=== PATIENT | female | born 1955 | race Caucasian/White ===

== ENCOUNTER 2019-04-30 11:14 | Emergency (ER) | payer OTHER ==
[~2019-04-30] VITALS: Ht 165.1 cm; Wt 86.2 kg
[2019-04-30] MEDS ORDERED: Cymbalta20 MG PO (11:32)
[2019-04-30] MEDS ORDERED: BLOOD PRESSURE (11:32)
[2019-04-30] MEDS ORDERED: TRAZ50 (11:33)
[2019-04-30] MEDS ORDERED: AMOCLA875 PO (16:06)
[2019-04-30] MEDS ORDERED: IBUP800 PO (16:14)
== END 2019-04-30 17:05 | disposition home or self-care (01) ==
LOC: ER 11:14
DX: S61.412A Laceration without foreign body of left hand, initial encounter (principal); Z79.899 Other long term (current) drug therapy; W31.89XA Contact with other specified machinery, initial encounter; Y93.H2 Activity, gardening and landscaping
CPT/HCPCS: 12004; 73130; 96372-59; 99283-25; A9270; J1885

== ENCOUNTER → 2019-09-29 | Outpatient (CLI) | payer BC ==
[~2019-09-29] MED LIST: AMOCLA875 PO; BLOOD PRESSURE; Cymbalta20 MG PO; IBUP800 PO; TRAZ50
== END | disposition home or self-care (01) ==
LOC: LAB EV 19:00
DX: R10.12 Left upper quadrant pain (principal); R10.13 Epigastric pain
CPT/HCPCS: 87338

== ENCOUNTER 2021-01-26 07:02 | Emergency (ER) | payer MEDICARE, BC ==
[~2021-01-26] VITALS: Ht 165.1 cm; Wt 89.8 kg
[~2021-01-26 07:02] MED LIST changes: -TRAZ50; +TRAZ50 PO
[2021-02-22] MEDS ORDERED: Ultram50 MG PO (09:55)
[2021-02-22] MEDS ORDERED: ACET500 PO (09:56)
[2021-02-22] MEDS ORDERED: OMEP20ER PO (09:56)
[2021-03-15] MEDS ORDERED: ASPI81CH PO (08:58)
[2021-03-15] MEDS ORDERED: Norco 7.5-3251 EACH PO (08:58)
== END 2021-01-26 08:40 | disposition home or self-care (01) ==
LOC: ER 07:02
DX: S22.42XA Multiple fractures of ribs, left side, initial encounter for closed fracture (principal); S93.401A Sprain of unspecified ligament of right ankle, initial encounter; Z79.899 Other long term (current) drug therapy; W01.10XA Fall on same level from slipping, tripping and stumbling with subsequent striking against unspecified object, initial encounter
CPT/HCPCS: 71046; 73610; 99283-25

== ENCOUNTER 2021-03-14 06:47 | Day surgery (SDC) | payer MEDICARE, BC | END 2021-03-15 14:45 | disposition home or self-care (01) | LOC: ORSCMMR 06:47 → SURS 13:20 | PROC: 8E0Y0CZ Robotic Assisted Procedure of Lower Extremity, Open Approach (ICD-10-PCS; principal; 2021-03-14) | PROC: 0SRD0JA Replacement of Left Knee Joint with Synthetic Substitute, Uncemented, Open Approach (ICD-10-PCS; principal; 2021-03-14) | DX: M17.12 Unilateral primary osteoarthritis, left knee (principal); E11.9 Type 2 diabetes mellitus without complications; G47.33 Obstructive sleep apnea (adult) (pediatric); Z87.891 Personal history of nicotine dependence; Z79.899 Other long term (current) drug therapy; M79.7 Fibromyalgia; E66.01 Morbid (severe) obesity due to excess calories; Z68.37 Body mass index [BMI] 37.0-37.9, adult | CPT/HCPCS: 27447; S2900 ==

== ENCOUNTER 2021-03-22 18:54 | Emergency (ER) | payer MEDICARE, BC ==
[~2021-03-22] VITALS: Ht 165.1 cm; Wt 88.5 kg
[~2021-03-22 18:54] MED LIST changes: +ACET500 PO; +ASPI81CH PO; +Norco 7.5-3251 EACH PO; +OMEP20ER PO; +Ultram50 MG PO
[2021-03-22] MEDS ORDERED: Norco 5-325 Ta1 EACH PO (19:53)
== END 2021-03-22 20:11 | disposition home or self-care (01) ==
LOC: ER 18:54
DX: M25.562 Pain in left knee (principal); Z98.890 Other specified postprocedural states; Z79.82 Long term (current) use of aspirin; Z79.899 Other long term (current) drug therapy; Z87.891 Personal history of nicotine dependence
CPT/HCPCS: 96372; 99283; J1170; J1885

== ENCOUNTER → 2021-04-25 | Outpatient (CLI) | payer MEDICARE, BC ==
[~2021-04-25] MED LIST changes: +Norco 5-325 Ta1 EACH PO
== END ==
LOC: LAB 15:01 → LAB SHORT 15:01
DX: R30.0 Dysuria (principal)
CPT/HCPCS: 87077; 87086; 87186

== ENCOUNTER 2021-10-05 06:00 | Day surgery (SDC) | payer MEDICARE, BC ==
[~2021-10-05] VITALS: Ht 165.1 cm; Wt 90.9 kg
[~2021-10-05 06:00] MED LIST changes: +NAPR500ERA PO; +PANT40 PO; +PEPCID20 MG PO; +TRAM50 PO
[2021-10-05] MEDS ORDERED: METO25ER PO (06:30)
--- NOTE | 2021-10-05 10:10 | NUR ---
PT ARRIVED TO THE ROOM FROM PACU AT APPROXIMATELY 1010. SHE IS ALERT AND ORIENTED. SHE REPORTS MILD BUT TOLERABLE PAIN. TOLERATING SIPS OF FLUID AND JELLO. DRESSING C/D/I. WILL CONTINUE TO MONITOR.
[2021-10-05] MEDS ORDERED: Aspir 8181 MG PO (12:31)
--- NOTE | 2021-10-05 15:35 | NUR ---
PT IS RESTING IN HER ROOM AT THIS TIME, TALKING ON THE PHONE WITH FAMILY. PT WAS PROVIDED WITH PAIN MEDICATION FOR 7/10 PAIN AFTER THERAPY. POLAR PACK IN PLACE. WILL CONTINUE TO MONITOR.
--- NOTE | 2021-10-05 16:29 | NUR ---
SHIFT SUMMARY PT IS POD#0 FROM R TKA WITH DR. BENSON. SHE IS A 1 PERSON ASSIST WITH GAIT BELT AND WALKER WHEN OOB. PAIN MANAGED WITH PO PAIN MEDICATION. PT IS TOLERATING PO. PT WAS INCONTINENT X2, AND CONTINENT X1 OF URINE. WILL CONTINUE TO MONITOR UNTIL REPORT TO NOC RN.
--- NOTE | 2021-10-06 02:00 | NUR ---
PT REQUIRING IV AND PO PAIN MEDS FOR PAIN CONTROL AND STILL HAVING PEAKS OF PAIN.PT VERB WANTING TO BE CAUTIOUS REGARDING PAIN MED USE.HOWEVER,ININTIALLY TEARFUL REQUIRING DILAUDID AT 2104 FOLLOWED BY NORCO 7.5 AT 2124.PT REFUSED 2 NORCO.I CHECKED BACK WITH PT IN REGARDS TO TAKING SECOND NORCO AT 2149 AND PT DECLINED REPORTING HER PAIN AT LEVEL 2.AT 2229 PT CALLED REQUESTING SECOND NORCO FOR INCREASED PAIN LEVEL 7. THIS RN WAS IN PROCEDURE IN ANOTHER ROOM ,SO I REQUESTED MY GYM INSTRUCTOR TO GIVE MED WHICH WAS GIVEN AT 2244.AT 2255 I WAS PREPARED TO GIVE TORADOL AND NOTED PTS IV INFILTRATED AND TENDER. 2 NURSES ATEMPTED IV RESTART AND IV WAS OBTAINED PER FREDRICK RN AT 2255, TORADOL AND DILAUDID WERE BOTH GIVEN AT 001.NOT AVAILABLE TO GIVE 2 NORCO YET. I SPOKE WITH PT REGARDING CALLING DR TO REQUEST CHANGE OF PO MEDS DUE TO PT NOT HAVING LEVEL PAIN CONTROL AND TEARFUL BETWEEN DOSES. PT REPORTS HX FIBROMYALGIA TAKES TRAMADOL AT HOME, BUT DOES NOT WANT TO TAKE HER. ALSO REPORTS TAKES GABAPENTIN AT HOME ALTHOUGH IT IS LISTED ALLERGY FOR THIS PT. PT STATES DOESNT KNOW HOW THAT GOT ON HER RECORD, THAT THEY "JUST MUST NOT KNOW WHAT THEY AR DOING" PT STATES DOES NOT WANT TO TAKE ANY GABEPENTIN WHILE SHE IS HERE.PT VERB UPSET OVER IV REQUIRING 2 STAFF ATTEMPTS TO OBTAIN. I TALKED WITH PT REGARDING PAIN CONTROL AND REQUIRING OF DILAUD.DISCUSSED CONCERNS FOR INADEQUATE PAIN CONTROL WITH PO ALONE.AND CONCERNS WITH HIGH PAIN LEVELS BETWEEN DILAUDID DOSE. PT VERB WORRIES ABOUT TAKING STRONGER PO PAIN MEDS SOMETIMES PAIN MEDS HAVE MADE HER "CRAZY" ALTHOUGH AKNOWLEDGES THAT SHE FEELS PAIN IS INADEQUATELY CONTROLLED WOTH CURRENT NORCO. I PLACED CALL OUT TO DR BENSON VIA ANS SERVICE AT 0120 AND REPEAT CALL OUT 0140 ANS SERVICE REPORTS THEY HAVE SENT VIA TEXT.WAITING RETURN CALL. CON TINUED POLAR PACK,ADDED EXTRA ICE PACKS,OFFERED K PAD TO C/O DISCOMFORT TO UPPER THIGH, REPOSITIONED TO PTS COMFORT,OFFERED UP IN BED AND PT DECLINED.MED WITH NORCO 2 WHILE WAITING FOR RETURN CALL REGARDING MEDS.
[2021-10-06] MEDS ORDERED: NEURONTIN300 MG PO (04:19)
--- NOTE | 2021-10-06 04:30 | NUR ---
@8876 RETURN CALL FROM ,DISCUSSED PAIN MEDS AND PT UPSET/CONCERNS RECEIVED ORDERS.@ THIS TIME, PT NOW VERB NORCO EFFECTIVE.REFUSES XANAX AND DILAUDID AT PRESENT. PT HAS ALLERGY LISTED TO GABEPENTIN , BUT STATES IT IS INCORRECT,THAT SHE TAKES GABEP[ENTIN AT HOME.DR BENSON ORDERED FOR PT TO TAKE SHE TAKES AT HOME. PT AGREED TO THIS MED.ONCE PT REMENBERED DOSE, ORDER WAS PLACED.
[2021-10-06 04:38] LABS: BASOPHILS ABSOLUTE AUTO 0.01 K/mm3 (0.00-0.23); BASOPHILS PERCENT AUTO 0 % (0-2); EOSINOPHILS PERCENT AUTO 0 % (0-6); Hematocrit 35.6 % (33.0-51.0); Hemoglobin 11.7 g/dL (11.5-16.0); IMMATURE GRAN ABSOLUTE AUTO 0.04 K/mm3 (0.00-0.10); IMMATURE GRAN PERCENT AUTO 0 % (0-1); LYMPHOCYTES ABSOLUTE AUTO 0.85 K/mm3 (0.84-5.20); LYMPHOCYTES PERCENT AUTO 9 % (21-46); MONOCYTES ABSOLUTE AUTO 0.79 K/mm3 (0.16-1.47); MONOCYTES PERCENT AUTO 8 % (4-13); Mean Corpuscular HGB 29.4 pg (26.0-34.0); Mean Corpuscular HGB Conc 32.9 g/dL (31.5-36.5); Mean Corpuscular Volume 89 fL (80-100); Mean Platelet Volume 10.5 fL (9.1-12.4); NEUTROPHILS ABSOLUTE AUTO 8.18 K/mm3 (1.96-9.15); NEUTROPHILS PERCENT AUTO 83 % (41-73); Platelet Count 294 K/mm3 (150-400); RDW Coefficient Variation 13.9 % (11.7-14.2); RDW Standard Deviation 45.6 fL (35.1-46.3); Red Blood Cell Count 3.98 M/mm3 (3.80-5.20); White Blood Cell Count 9.87 K/mm3 (4.00-11.30)
[2021-10-06 04:56] LABS: Anion Gap 4 mmol/L (6-16); Blood Urea Nitrogen 12 mg/dL (8-24); Bun/Creatinine Ratio 17.1 (12.0-20.0); CO2, Blood 29 mmol/L (21-32); Calcium, Blood 8.6 mg/dL (8.5-10.1); Chloride, Blood 105 mmol/L (98-108); Glomerular Filtration Rate >60 (60-); Glucose, Blood 148 mg/dL (70-99); Potassium, Blood 3.9 mmol/L (3.5-5.5); Sodium, Blood 138 mmol/L (136-145)
--- NOTE | 2021-10-06 06:42 | NUR ---
SUMMARY PT MED WITH GABAPENTIN,AND DECIDED TO TAKE XANAX. PT REPORTS SHE HAS HAD HX ANXIETY AND FEELS WHAT SHE CONSIDERED "CRAZY": WITH PAIN MEDS, WAS ACTUALLY MORE LIKELY ANXIETY.MED PER ORDERS.PT WANTING TO SLEEP FOR AN HOUR. PULSE OX ON FOR MONITORING.
--- NOTE | 2021-10-06 07:18 | NUR ---
ROUNDED ON PT. SHE IS RESTING IN BED WITH HER EYES CLOSED. RESPIRATIONS EVEN AND UNLABORED. BP SLIGHTLY LOW THIS AM. DEBBY ROBLEDO INSTRUCTED TO RE-CHECK BP APPROXIMATELY 15 MINUTES FROM INITIAL BP READING. WILL CONTINUE TO MONITOR.
[2021-10-06] MEDS ORDERED: PANT40 PO (09:19)
[2021-10-06] MEDS ORDERED: Norco 7.5-3251 EACH PO (09:56)
[2021-10-06] MEDS ORDERED: ALPR.5 PO (09:57)
--- NOTE | 2021-10-06 11:20 | NUR ---
DISCHARGE PT PROVIDED WITH WRITTEN AND VERBAL DISCHARGE INSTRUCTIONS; SHE VERBALIZED UNDERSTANDING. PRIOR TO DISCHARGE PT ABLE TO VOID, TOLERATING PO, PAIN MANAGED AND SHE CLEARED THERAPY. PT DID REPORT SOME INCREASE IN PAIN TO 5/10 PRIOR TO DISCHARGE, SHE WAS GIVEN NOON DOSE OF TORADOL BEFORE IV WAS REMOVED. DESPITE INCREASE IN PAIN, PT REPORTED STILL WANTING TO GO HOME, SHE REPORTED THAT SHE HAD ADEQUATE PAIN MANAGEMENT TO GO HOME. PT WAS SENT HOME WITH CLEAN DRESSINGS. PT'S BELONGINGS WERE PACKED UP BY MEENA GUARDADO. PT SOBIA DECLINED TO TAKE HER POLAR PACK HOME. SHE WAS PROVIDED WITH EDUCATION ABOUT THE IMPORTANCE OF USING HER POLAR PACK AND AGREED TO TAKE IT HOME AFTER EDUCATION WAS PROVIDED. VSS PRIOR TO DISCHARGE. PT ESCORTED OUT IN W/C BY MEENA GUARDADO AT APPROXIMATELY 1119.
== END 2021-10-06 11:19 | disposition home or self-care (01) ==
LOC: ORSCMMR 06:00 → SURS 10:08 → ORSCMMR 10:37
PROVIDERS: Orthopaedic Surgery
PROC: 8E0Y0CZ Robotic Assisted Procedure of Lower Extremity, Open Approach (ICD-10-PCS; principal; 2021-10-05 07:30)
PROC: 0SRC0JA Replacement of Right Knee Joint with Synthetic Substitute, Uncemented, Open Approach (ICD-10-PCS; principal; 2021-10-05 07:30)
DX: M17.11 Unilateral primary osteoarthritis, right knee (principal); Z87.891 Personal history of nicotine dependence; F41.8 Other specified anxiety disorders; E11.9 Type 2 diabetes mellitus without complications; M79.7 Fibromyalgia; I10 Essential (primary) hypertension; G47.33 Obstructive sleep apnea (adult) (pediatric); Z79.899 Other long term (current) drug therapy
CPT/HCPCS: 27447; S2900; 36415; 73560-RT; 80048; 85025; 97110; 97161; A9270; C1776; J0171; J0690; J0735; J1100; J1170; J1885; J2250; J2370; J2405; J2704; J2795; J3010; J7120

== ENCOUNTER 2022-10-28 04:15 | Emergency (ER) | payer MEDICARE, BC ==
[~2022-10-28] VITALS: Ht 165.1 cm; Wt 90.7 kg
[~2022-10-28 04:15] MED LIST changes: +ALPR.5 PO; +Aspir 8181 MG PO; +METO25ER PO; +NEURONTIN300 MG PO
[2022-10-28] MEDS ORDERED: BUSPIRONE HCL10 M6 PO (04:59)
[2022-10-28 05:36] LABS: Influenza A, PCR NEGATIVE (NEGATIVE); Influenza B, PCR NEGATIVE (NEGATIVE); Resp Syncytial Virus, PCR NEGATIVE (NEGATIVE); SARS-Cov-2 (COVID-19) PCR, MMC NEGATIVE (NEGATIVE)
[2022-10-28] MEDS ORDERED: DOXY100 PO ×2 (06:19→06:24)
[2022-10-28] MEDS ORDERED: BENZ100A PO (06:24)
== END 2022-10-28 06:33 | disposition home or self-care (01) ==
LOC: ER 04:15
PROVIDERS: Student in an Organized Health Care Education/Training Program
DX: J18.9 Pneumonia, unspecified organism (principal); Z88.8 Allergy status to other drugs, medicaments and biological substances; Z79.899 Other long term (current) drug therapy; Z79.82 Long term (current) use of aspirin; Z87.891 Personal history of nicotine dependence; Z20.822 Contact with and (suspected) exposure to COVID-19
CPT/HCPCS: 0241U; 71045; A9270

== ENCOUNTER → 2022-11-21 | Outpatient (CLI) | payer MEDICARE, BC ==
[~2022-11-21] MED LIST changes: +BENZ100A PO; +BUSPIRONE HCL10 M6 PO; +DOXY100 PO
[2022-11-21 09:28] LABS: BASOPHILS ABSOLUTE AUTO 0.01 K/mm3 (0.00-0.23); BASOPHILS PERCENT AUTO 0 % (0-2); EOSINOPHILS ABSOLUTE AUTO 0.12 K/mm3 (0.00-0.68); EOSINOPHILS PERCENT AUTO 2 % (0-6); Hematocrit 41.2 % (33.0-51.0); Hemoglobin 13.9 g/dL (11.5-16.0); IMMATURE GRAN ABSOLUTE AUTO 0.02 K/mm3 (0.00-0.10); IMMATURE GRAN PERCENT AUTO 0 % (0-1); LYMPHOCYTES ABSOLUTE AUTO 0.61 K/mm3 (0.84-5.20); LYMPHOCYTES PERCENT AUTO 11 % (21-46); MONOCYTES ABSOLUTE AUTO 0.61 K/mm3 (0.16-1.47); MONOCYTES PERCENT AUTO 11 % (4-13); Mean Corpuscular HGB Conc 33.7 g/dL (31.5-36.5); Mean Corpuscular Volume 89 fL (80-100); Mean Platelet Volume 9.7 fL (9.1-12.4); NEUTROPHILS ABSOLUTE AUTO 4.41 K/mm3 (1.96-9.15); NEUTROPHILS PERCENT AUTO 76 % (41-73); Platelet Count 225 K/mm3 (150-400); RDW Coefficient Variation 13.8 % (11.7-14.2); RDW Standard Deviation 44.7 fL (35.1-46.3); Red Blood Cell Count 4.64 M/mm3 (3.80-5.20); White Blood Cell Count 5.78 K/mm3 (4.00-11.30)
[2022-11-21 09:36] LABS: Albumin, Blood 3.3 g/dL (3.4-5.0); Bilirubin, Total 0.4 mg/dL (0.1-1.0); Bun/Creatinine Ratio 11.1 (12.0-20.0); Calcium, Blood 8.7 mg/dL (8.5-10.1); Creatinine, Blood 0.81 mg/dL (0.40-1.00); Globulin, Blood 3.3 g/dL (2.2-4.0); Potassium, Blood 3.7 mmol/L (3.5-5.5); Total Protein, Blood 6.6 g/dL (6.4-8.2)
== END | disposition home or self-care (01) ==
LOC: LAB SHORT 09:20 → LAB 09:20
PROVIDERS: Physician Assistant
DX: R06.00 Dyspnea, unspecified (principal)
CPT/HCPCS: 80053; 84484; 85025; 85379

== ENCOUNTER → 2022-12-13 | Outpatient (CLI) | payer MEDICARE, BC | END | disposition home or self-care (01) | LOC: LAB SHORT 13:30 → LAB 13:30 | DX: M54.50 Low back pain, unspecified (principal); R30.0 Dysuria | CPT/HCPCS: 87077; 87086; 87186 ==

== ENCOUNTER → 2024-11-02 | Outpatient (CLI) | payer MEDICARE, BC ==
[~2024-11-02] MED LIST changes: +ESTRADIOL42.5 GM VG; +FAMO20 PO
== END ==
LOC: LAB SHORT 14:40 → LAB 14:40
DX: N39.0 Urinary tract infection, site not specified (principal)
CPT/HCPCS: 87077; 87086; 87186

== ENCOUNTER → 2025-02-01 | Outpatient (CLI) | payer MEDICARE, BC | LOC: LAB 12:54 → LAB SHORT 12:54 | DX: L03.116 Cellulitis of left lower limb (principal) | CPT/HCPCS: 87070; 87075; 87205 ==